=== PATIENT | female | born 1950 | race Caucasian/White ===

== ENCOUNTER 2019-06-01 13:45 | Outpatient (CLI) | payer MEDICARE, SELFPAY ==
--- NOTE | ~2019-06-01 | US_ITS ---
US thyroid INDICATION: Follow-up thyroid nodules TECHNIQUE: Real-time sonographic images of the thyroid gland were obtained. COMPARISON: No prior studies for comparison. FINDINGS: The right thyroid lobe measures 4.7 x 1.8 x 1.8 cm.. The left thyroid lobe measures 4.4 x 2 x 1.7 cm. There is normal echotexture and echogenicity throughout the thyroid gland. There are smal l hypoechoic nodules in both lobes, largest on the right measuring 6 mm. Largest in the isthmus measu res 1.2 cm. Largest in the left lobe measures 10 mm. These nodules do not meet TI RADS criteria for b iopsy. Normal vascular flow is present. IMPRESSION: 1. Multiple small thyroid nodules, largest in the isthmus measuring 1.2 cm, most likely benign multi nodular goiter. These masses do not meet criteria for biopsy. Consider follow-up ultrasound in 12 mon ths. Reviewed, dictated and finalized at location A. ESALE REPRESENTATIVE IMPRESSION: 1. Multiple small thyroid nodules, largest in the isthmus measuring 1.2 cm, mo st likely benign multinodular goiter. These masses do not meet criteria for bio psy. Consider follow-up ultrasound in 12 months.
== END 2019-06-01 13:46 | disposition home or self-care (01) ==
PROVIDERS: Visit Provider Internal Medicine Endocrinology, Diabetes & Metabolism
DX: M81.0 Age-related osteoporosis without current pathological fracture (principal); E21.3 Hyperparathyroidism, unspecified; E04.1 Nontoxic single thyroid nodule
CPT/HCPCS: 76536

== ENCOUNTER 2019-06-20 14:07 | Outpatient (CLI) | payer MEDICARE, SELFPAY ==
--- NOTE | ~2019-06-20 | DEXA_ITS ---
Bone Density Report Name: Cristal Torres Age: 69 Sex: Female Ethnicity: White Date of : 1950 Indication: osteopenia; hyperparathyroidism; height loss; prior fracture; asthma or emphysema; Referring Provider: Lauren Crawford Study: Bone densitometry was performed. Exam Date: June 20, 2019 Accession number: [id number] Bone Density: Region BMD T-score Z-score Classification AP Spine (L1-L4) 1.030 -0.2 1.9 Normal Femoral Neck (Left) 0.505 -3.1 -1.3 Osteoporosis Total Hip (Left) 0.745 -1.6 -0.2 Osteopenia Total Hip Bilateral Avg 0.699 -2.0 -0.5 Osteopenia Femoral Neck (Right) 0.551 -2.7 -0.9 Osteoporosis Total Hip (Right) 0.652 -2.4 -0.9 Osteopenia World Health Organization criteria for BMD impression classify patients as: Normal (T-score at or above -1.0), Osteopenia (T-score between -1.0 and -2.5), or Osteoporosis (T-score at or below -2.5). 10-year Fracture Risk: FRAX not reported because: Some T-score for Spine Total or Hip Total or Femoral Neck at or below -2.5 Previous Exams: Region Exam Age BMD T-score BMD Change BMD Change Date g/cm2 vs Baseline vs Previous AP Spine(L1-L4) 06/20/2019 69 1.030 -0.2 0.055(5.6%)# -0.002(-0.2%) 05/26/2016 66 1.032 -0.1 0.057(5.8%)# 0.005(0.5%)# 08/25/2010 60 1.027 -0.2 0.051(5.3%)* 0.051(5.3%)* 10/05/2006 56 0.975 -0.7 Total Hip(Left) 06/20/2019 69 0.745 -1.6 -0.006(-0.8%)# -0.006(-0.9%) 05/26/2016 66 0.752 -1.6 0.000(0.0%)# -0.014(-1.8%)# 08/25/2010 60 0.765 -1.4 0.014(1.9%) 0.014(1.9%) 10/05/2006 56 0.751 -1.6 Total Hip(Right) 06/20/2019 69 0.652 -2.4 -0.197(-23.2%) -0.125(-16.1%) 05/26/2016 66 0.777 -1.4 -0.073(-8.5%)# 0.006(0.7%)# 08/25/2010 60 0.771 -1.4 -0.078(-9.2%)* -0.078(-9.2%)* 10/05/2006 56 0.850 -0.8 *Denotes significance at 95% confidence level, LSC for AP Spine = 0.022 g/cm2, LSC for Total Hip = 0.027 g/cm2 Clinical Information Provided by Patient: Has had a low trauma fracture Smokes Has used the following medications: Evista (i.e. raloxifene), Vitamin D Has the following medical conditions: Asthma or Emphysema, Hyperparathyroidism Patient maximum height was 63 Menopause Age: 47 No regular weight bearing exercise Onset of menses at age 12 Number of children 2 Impression: The patient has established osteoporosis, based on the Left Femoral Neck T-score and the existence of a prior fracture. The demi
== END 2019-06-20 14:08 | disposition home or self-care (01) ==
LOC: ANHIMG 14:14
PROVIDERS: Visit Provider Internal Medicine Endocrinology, Diabetes & Metabolism
DX: E21.3 Hyperparathyroidism, unspecified (principal); E27.8 Other specified disorders of adrenal gland; M81.0 Age-related osteoporosis without current pathological fracture
CPT/HCPCS: 77080

== ENCOUNTER 2019-06-29 10:30 | Outpatient (RCR) | payer MEDICARE, SELFPAY ==
--- NOTE | 2019-05-08 10:54 | PTOPEVAL ---
Thank you for referring this patient to [facility]. Please review, sign, date and return this plan of care BRUNO. Pt requires additional skilled therapy to address impairments related to TKR on 04/05/19. She demonstrates decreased knee motion, skip LE weakness, decreased walking speed, decreased performance on steps and level surfaces. She requires additional skilled therapy 2-3x/wk x 6 wk to achieve therapy goals. I agree with and certify that the following plan of care is medically necessary. Referring Physician Date Admitting Provider: Attending Provider: PHYSICIAN NOT ON STAFF Referring Provider: Dr. Dane Liu, DO *PT Outpatient Evaluation Start: 05/08/19 09:51 Freq: Status: Active Protocol: Document 05/08/19 09:49 CAP (Rec: 05/08/19 10:54 CAP [email or web address]) Therapy Assessment Status Assessment Status Assessment Status Evaluation Outpatient Past Medical History Respiratory History Hx Emphysema Yes: mild Gastrointestinal History Hx Gastroesophageal Reflux Disease Yes Hx Hernia Yes Genitourinary History Hx Kidney Stones Yes Musculoskeletal History Hx Arthritis Yes: right shoulder Hx Joint Replacement Yes: right TKR 04/05/19, left: 08/27 Hematological History Hx Anemia Yes Evaluation Information Problem Diagnosis right TKR due to OA Onset 04/05/19 Cause OA Subjective Information Pt referred to therapy due to Query Text:As Reported By Patient/ right TKR on 04/05/19. She had Family 2 wk of home health with cont performance of HEP. She has progressed off the AD. She reports weakness of right LE, decreased balance with walking and standing activities, increased pain and soreness. she had significant bruising of right LE that just recently improved. Previous Treatments Previous Treatments For This Problem home health Prior Level of Function Activity Level (Last 3 Months) Occupation not working Hand Dominance Right Activity of Daily Living Ability Independent Indoor/Home Mobility Independent Community Mobility Independent Stairs Ability Independent Cooking Yes Cleaning Yes Laundry Yes Shopping Yes Driving Yes Home Setting Home Type House Environmental Ba
--- NOTE | 2019-06-05 11:28 | PTOPEVAL ---
Thank you for referring this patient to [facility]. Please review, sign, date and return this plan of care BRUNO. Pt has received 9 physical therapy visits to address impairments related to right s/p TKR. She demonstrate progress with LE strength, knee range, functional walking speed and pain with daily activities. She requires additional skilled therapy 2x/wk x 3 wk to achieve therapy goals. I agree with and certify that the following plan of care is medically necessary. Referring Physician Date Attending Provider: PHYSICIAN NOT ON STAFF Referring Provider: Dr. Dane Liu DO *PT Outpatient Re-Evaluation Start: 05/08/19 09:51 Freq: Status: Active Protocol: Document 06/05/19 10:46 CAP (Rec: 06/05/19 11:28 CAP [email or web address]) Therapy Assessment Status Assessment Status Assessment Status Re-evaluation Outpatient Past Medical History Respiratory History Hx Emphysema Yes: mild Gastrointestinal History Hx Gastroesophageal Reflux Disease Yes Hx Hernia Yes Genitourinary History Hx Kidney Stones Yes Musculoskeletal History Hx Arthritis Yes: right shoulder Hx Joint Replacement Yes: right TKR 04/05/19, left: 08/27 Hematological History Hx Anemia Yes Evaluation Information Problem Diagnosis right TKR due to OA Onset 04/05/19 Cause OA Additional Evaluation Detail Pt referred to therapy due to right TKR on 04/05/19. She had 2 wk of home health with cont performance of HEP. She has progressed off the AD. . Subjective Information She reports right LE to be Query Text:As Reported By Patient/ stronger, but with continued Family tightness on the front of the knee. States she has difficult with transfers due to the tightness. Reports it will loosen as she is up walking. She reports improved balance due to decreased substitution with walking. Knee pain of 3/10 with prolonged standing and community mobilty. Pain Assessment Timing of Pain Assessment Timing of Pain Assessment Re-assessment Pain Scale Pain Scale Used Numeric (1 - 10) Self Report Pain Assessment Right Knee(s) Reported Pain Level 1 Pain Description Aching,Tightness,With Movement Pain Frequency Continuous Current Pain Intensity
--- NOTE | 2019-06-26 10:47 | PCPTNOTE ---
Patient called & cancelled scheduled appointment this date due to family emergency.
--- NOTE | 2019-06-29 11:18 | PTOPEVAL ---
Thank you for referring this patient to [facility]. Please review, sign, date and return this plan of care BRUNO. Pt has received 13 therapy visits to address impairments related to TKR. She demonstrates improved performance with functional activities of walking, transfers and steps. She has reached all therapy goals except hip abd and knee flex strength. She is independent with her HEP and perform normal daily activities. DC skilled therapy at this time. I agree with and certify that the following plan of care is medically necessary. Referring Physician Date Attending Provider: PHYSICIAN NOT ON STAFF Referring Provider: Dr. Dane Liu, DO *PT Outpatient Re-Evaluation/Discharge Start: 05/08/19 09:51 Freq: Status: Active Protocol: Document 06/29/19 10:27 JULIAN (Rec: 06/29/19 11:08 [facility] [email or web address]) Therapy Assessment Status Assessment Status Assessment Status Discharge Re-Evaluation Information Problem Diagnosis right TKR due to OA Onset 04/05/19 Cause OA Additional Evaluation Detail Pt referred to therapy due to right TKR on 04/05/19. She had 2 wk of home health with cont performance of HEP. She has progressed off the AD. Subjective Information Cont to reports tightness on Query Text:As Reported By Patient/ the front of the knee from Family kneecap to lower upper leg. Reports improved ability to perforomtransfers from all surfaces. She is using her hands to assist with the movement. Denies any limitations with walking.She is able to perform community walking better. Also reports improved standing balance. She reports increase knee pain and tightness with prolonged standing and walking act. Pain Assessment Timing of Pain Assessment Timing of Pain Assessment Re-assessment Pain Scale Pain Scale Used Numeric (1 - 10) Self Report Pain Assessment Right Knee(s) Reported Pain Level 1 Pain Description Tightness Lowest Pain Intensity 4 Pain Aggravating Factors Walking,Weight Bearing/ Standing Pain Behaviors None Pain Relief Interventions Used By Ice,Inactivity/Rest Patient Pain Score Pain Score 1: Self Report Lower Extremity Range of Motion Knee Range of Motion Left Knee Flexion Range of Motion - Active 120 Knee
== END 2019-06-29 12:36 | disposition home or self-care (01) ==
LOC: ANHPT 10:30
DX: Z47.1 Aftercare following joint replacement surgery (principal); Z96.651 Presence of right artificial knee joint
CPT/HCPCS: 97110; 97112; 97116; 97140; 97162; 97530

== ENCOUNTER 2020-09-15 11:04 | Outpatient (CLI) | payer MEDICARE, SELFPAY ==
--- NOTE | ~2020-09-15 | US_ITS ---
EXAMINATION: US thyroid DATE: 09/15/2020 11:31 INDICATION: Nontoxic single thyroid nodule TECHNIQUE: Multiple ultrasound images of the thyroid were obtained. COMPARISON: 06/01/2019 FINDINGS: The right thyroid lobe measures 4.2 x 1.7 x 1.6 cm. The left thyroid lobe measures 4.1 x 1.8 x 1.5 c m. There are several small nodules in both the left and right thyroid lobes. The largest on the righ t is a wider than tall 5 mm very hypoechoic solid nodule at the inferior right thyroid with smooth ma rgins and with single echogenic focus (TI-RADS 5, highly suspicious , FNA if >=1.0 cm, annual followu p is >0.5 cm). The largest on the left is an 8 mm wider than tall solid hypoechoic nodule with smooth margins and without echogenic foci in the left thyroid lobe (TI-RADS 4, moderately suspicious , FNA if >=1.5 cm, annual followup is >=1 cm). There is normal echotexture, echogenicity and vascular flow throughout the thyroid gland. IMPRESSION: 1. Multiple small bilateral thyroid nodules, one of which on the right although small mucous criteria for continued annual ultrasound follow-up which would be recommended. No nodules meet criteria for b iopsy at this time. Reviewed, dictated and finalized at location A. IMPRESSION: 1. Multiple small bilateral thyroid nodules, one of which on the right although small mucous criteria for continued annual ultrasound follow-up which would be recommended. No nodules meet criteria for biopsy at this time.
== END 2020-09-15 11:05 | disposition home or self-care (01) ==
PROVIDERS: PCP Internal Medicine; Visit Provider Internal Medicine Endocrinology, Diabetes & Metabolism
DX: E04.2 Nontoxic multinodular goiter (principal)
CPT/HCPCS: 76536

== ENCOUNTER 2024-03-14 08:53 | Emergency (ER) | payer MEDICARE, SELFPAY ==
--- NOTE | ~2024-03-14 | XR_ITS ---
EXAMINATION: XR wrist LT min 3V DATE: 03/14/2024 09:14 INDICATION: Left wrist pain post fall TECHNIQUE: Posteroanterior, ulnar deviation, oblique, and lateral views of the left wrist were obtain ed. COMPARISON: none FINDINGS: There is buckling of the dorsal and ulnar sided cortices at the distal metaphyseal region of the left radius consistent with a mildly impacted but otherwise nondisplaced fracture. Slight dorsal impactio n resulting in decreased, now 2 degrees volar tilt of the distal articular surface. No evident extens ion of the fracture to involve the distal articular surface. Alignment remains otherwise essentially anatomic. Tiny corticated ossicle near the tip the ulnar styloid process without acute appearing dono r site likely sequela of old trauma either chronic nonunited avulsion fracture fragment or heterotopi c ossification related to chronic soft tissue injury to the triangular fibrocartilage complex. No oth er fractures identified. Moderate to severe osteoarthritis at the first carpometacarpal joint. Mild o steoarthritis at the triscaphe and first metacarpophalangeal joints. Soft tissue swelling with subcut aneous edema about the left wrist and carpus. IMPRESSION: 1. Mild dorsal impaction of a nondisplaced likely extra articular fracture of the distal metaphyseal region of the left radius. Reviewed, dictated and finalized at location A. SIT MAN IMPRESSION: 1. Mild dorsal impaction of a nondisplaced likely extra articular fracture of t he distal metaphyseal region of the left radius.
--- NOTE | 2024-03-14 09:01 | ED_ITS ---
HPI - Extremity Injury (Upper) General Chief Complaint: Extremity Injury, Upper Stated Complaint: LT wrist injury Time Seen by Provider: 03/14/24 09:02 Source: patient, RN notes reviewed and old records reviewed Mode of arrival: ambulatory Limitations: no limitations History of Present Illness HPI narrative: patient presents with complaints of left wrist pain and swelling after slip and fall yesterday. She reports she slipped on a wet spot outside, caught self with extended left hand. She now has pain and mild swelling to the left wrist. She has been taking Tylenol for her injury with minimal relief. She does retain range of motion, but this does aggravate the pain. Denies any numbness or tingling. Denies any other injury or trauma. Voices no other concerns or complaints at this time. Related Data Home Medications Medication Instructions Recorded Confirmed acetaminophen 325 mg capsule 325 mg PO Q6H PRN arthritis 05/29/19 03/14/24 (Tylenol) cholecalciferol (vitamin D3) 50 50 mcg PO DAILY 05/29/19 03/14/24 mcg (2,000 unit) capsule cyanocobalamin (vitamin B-12) 500 500 mcg PO .COMPLEX 05/29/19 03/14/24 mcg tablet pantoprazole 40 mg tablet,delayed 40 mg PO QAM 05/29/19 03/14/24 release venlafaxine 75 mg capsule,extended 75 mg PO DAILY 05/29/19 03/14/24 release 24 hr (Effexor XR) trazodone 50 mg tablet 50 mg PO BID 08/30/19 03/14/24 Allergies Allergy/AdvReac Type Severity Reaction Status Date / Time Penicillins Allergy Mild hives Verified 03/14/24 08:57 Review of Systems Review of Systems: All systems reviewed & are unremarkable except as noted in HPI and below Constitutional: Constitutional: Reports no additional constitutional complaints ENT: Reports system reviewed and no additional complaints, except as documented Cardiovascular: Cardiovascular: Reports no additional cardiovascular complaints Respiratory: Respiratory: Reports no additional respiratory complaints Gastrointestinal: Gastrointestinal: Reports no additional gastrointestinal complaints Musculoskeletal: Musculoskeletal: Reports no additional musculoskeletal complaints and Reports as per HPI [facility] Past Medical History Medical History Anemia Arthritis Back pain Cataracts, bilateral Kidney disease Ulcer Surgical History Surgical History H/O hand surgery H/O knee surgery H/O lithotripsy History of knee replacement Family History Family History Father Family history of chronic obstructive pulmonary disease Mother Family history of malignant neoplasm of breast in first degree relative Other Cerebrovascular accident Family history of arthritis Family history of cardiovascular disease Family history of congestive heart failure Family history of hearing loss Family history of lung disease Family history of malignant neoplasm of male breast Family history of obesity Hypertension Social History Social History Smoking status: Never smoker Alcohol intake: never Comments At the time of my signature, I reviewed and agree with the nursing past medical, surgical, social, and family history. There is no relevant family history pertinent to the patient complaint. Exam Const: General: cooperative, no acute distress, alert and awake Orientation/consciousness: oriented to person, oriented to place and oriented to time HENMT: Head: normal to inspection Resp: Effort & Inspection: normal respiratory effort and able to speak in complete sentences Auscultation: clear to auscultation bilaterally, no crackles, no rales, no rhonchi and no wheezes Cardio: Palpation: normal PMI Rate: regular rate Rhythm: regular rhythm Heart sounds: S1 normal heart sound present and S2 normal heart sound present Neuro: General: oriented to person, oriented to place and oriented to time Cranial nerves: Yes CN's II-XII intact bilaterally Extrem: Left upper extremity: wrist tenderness of the distal radius, swelling of the dorsal wrist, normal vascular exam, radial pulse present and ulnar pulse present Psych: Appearance: grossly normal Thought process: Normal thought process present Insight: Good insight present (Psych) Judgement: Good judgement present (Psych) Course Course Level of Care: Express Care Visit Vital Signs Vital signs: Reviewed MDM - Extremity Injury (Upper) MDM Narrative Medical decision making narrative: radial buckle fracture noted on x-ray. Splint applied. Patient has orthopedic doctor that she likes to follow with. Short course of pain medications prescribed as Tylenol is not working for her pain. Follow-up with primary care provider, emergency department for new or worse symptoms Discharge instructions reviewed with patient, as well as provided in writing per nursing staff. The instructions also include specific and strict return/GO TO THE ER as well as f/u information. All questions have been answered, and the patient deny any further questions with discharge and discharge plan. Some parts of this dictation were generated by voice recognition software and may contain typographical and/or grammatical inaccuracies. Differential Diagnosis Differential diagnosis: Likely sprain and strain of wrist and fracture of wrist Medical Records Attestation: I reviewed the patient's medical records. Imaging Data Attestation: I personally reviewed and interpreted this imaging study as follows: My impression: radial head fracture Radiologist's impression: [address] [address] XRay Report Signed Patient: Cristal Torres : 1950 MR#: [id number] Age: 74 Acct:[id number] Loc: [facility] ADM Date: 03/14/24Attending Dr: Ordering Physician: Krista Francisco FNP Date of Service: 03/14/24 Procedure(s): XR wrist LT min 3V Accession Number(s): [id number] cc: Krista Francisco FNP; Jeffrey, Amy MAZA~ EXAMINATION: XR wrist LT min 3V DATE: 03/14/2024 09:14 INDICATION: Left wrist pain post fall TECHNIQUE: Posteroanterior, ulnar deviation, oblique, and lateral views of the left wrist were obtained. COMPARISON: none FINDINGS: There is buckling of the dorsal and ulnar sided cortices at the distal metaphyseal region of the left radius consistent with a mildly impacted but otherwise nondisplaced fracture. Slight dorsal impaction resulting in decreased, now 2 degrees volar tilt of the distal articular surface. No evident extension of the fracture to involve the distal articular surface. Alignment remains otherwise essentially anatomic. Tiny corticated ossicle near the tip the ulnar styloid process without acute appearing donor site likely sequela of old trauma either chronic nonunited avulsion fracture fragment or heterotopic ossification related to chronic soft tissue injury to the triangular fibrocartilage complex. No other fractures identified. Moderate to severe osteoarthritis at the first carpometacarpal joint. Mild osteoarthritis at the triscaphe and first metacar pophalangeal joints. Soft tissue swelling with subcutaneous edema about the left wrist and carpus. IMPRESSION: 1. Mild dorsal impaction of a nondisplaced likely extra articular fracture of the distal metaphyseal region of the left radius. Reviewed, dictated and finalized at location A. LY AND CONSUMER SCIENCES PROFESSOR Dictated By: Thanh Wesley MD 03/14/24922 Signed By: <Electronically signed by Thanh Wesley MD in OV> 03/14/249[address] [place] [address] XRay Report Signed Patient: Cristal Torres : 1950 MR#: [id number] Age: 74 Acct:[id number] Loc: [facility] ADM Date: 03/14/24Attending Dr: Ordering Physician: Krista Francisco FNP Date of Service: 03/14/24 Procedure(s): XR wrist LT min 3V Accession Number(s): [id number] cc: Krista Francisco FNP; Jeffrey, Amy MAZA~ EXAMINATION: XR wrist LT min 3V DATE: 03/14/2024 09:14 INDICATION: Left wrist pain post fall TECHNIQUE: Posteroanterior, ulnar deviation, oblique, and lateral views of the left wrist were obtained. COMPARISON: none FINDINGS: There is buckling of the dorsal and ulnar sided cortices at the distal metaphyseal region of the left radius consistent with a mildly impacted but otherwise nondisplaced fracture. Slight dorsal impaction resulting in decreased, now 2 degrees volar tilt of the distal articular surface. No evident extension of the fracture to involve the distal articular surface. Alignment remains otherwise essentially anatomic. Tiny corticated ossicle near the tip the ulnar styloid process without acute appearing donor site likely sequela of old trauma either chronic nonunited avulsion fracture fragment or heterotopic ossification related to chronic soft tissue injury to the triangular fibrocartilage complex. No other fractures identified. Moderate to severe osteoarthritis at the first carpometacarpal joint. Mild osteoarthritis at the triscaphe and first meta carpophalangeal joints. Soft tissue swelling with subcutaneous edema about the left wrist and carpus. IMPRESSION: 1. Mild dorsal impaction of a nondisplaced likely extra articular fracture of the distal metaphyseal region of the left radius. Reviewed, dictated and finalized at location A. LY AND CONSUMER SCIENCES PROFESSOR Dictated By: Thanh Wesley MD 03/14/24922 Signed By: <Electronically signed by Thanh Wesley MD in OV> 03/14/24926 Discharge Plan Discharge Clinical Impression: Fracture of wrist Qualifiers: Encounter type: initial encounter Fracture type: closed Laterality: left Qualified Code(s): S62.102A - Fracture of unspecified carpal bone, left wrist, initial encounter for closed fracture Patient Disposition: Home, Self-Care Condition: Stable Instructions: Antibiotic Form, Wrist Fracture in Adults (ED) Additional Instructions: take pain medication as prescribed as needed. Please do not drive while taking this medication. Please call your orthopedic doctor for an appointment immediately. Follow-up with primary care provider. Emergency department for new or worsening symptoms Patient Language: Bulgarian Prescriptions: New tramadol 100 mg tablet 100 mg PO Q6H PRN (Reason: pain) Qty: 20 0RF No Action venlafaxine [Effexor XR] 75 mg capsule,extended release 24hr 75 mg PO DAILY pantoprazole 40 mg tablet,delayed release (DR/EC) 40 mg PO QAM cholecalciferol (vitamin D3) 50 mcg (2,000 unit) capsule 50 mcg PO DAILY cyanocobalamin (vitamin B-12) 500 mcg tablet 500 mcg PO .COMPLEX Rx Instructions: 500 mcg PO twice a week; acetaminophen [Tylenol] 325 mg capsule 325 mg PO Q6H PRN (Reason: arthritis) trazodone 50 mg tablet 50 mg PO BID Follow-up/Referrals: Jeffrey,Amy Sung MD [Primary Care Provider] - 3 Days
[2024-03-14 09:03] VITALS: BP 138/90; PULSE 100; RESP 16; TEMP 36.1; O2SAT 100
== END 2024-03-14 09:50 | disposition home or self-care (01) ==
PROVIDERS: Emergency Provider Nurse Practitioner Family; PCP Internal Medicine
DX: S52.502A Unspecified fracture of the lower end of left radius, initial encounter for closed fracture (principal); W01.0XXA Fall on same level from slipping, tripping and stumbling without subsequent striking against object, initial encounter; M19.90 Unspecified osteoarthritis, unspecified site; H26.9 Unspecified cataract
CPT/HCPCS: 29125; 73110; 99214; A4565; G0463